=== PATIENT | female | born 1940 | race Caucasian/White ===

== ENCOUNTER → 2020-10-15 | Outpatient (CLI) | payer MEDICARE, BC ==
[~2020-10-15] MED LIST: ALEN70TA77 PO; ASPI81TA45 PO; CIPR250T2 PO; HYDR12.517 PO; LEVO5DRO EACHEYE; METO50TA82 PO; NAPR-856 PO; SIMV20TA19 PO; ZOLP6.255 PO
== END | disposition home or self-care (01) ==
LOC: CFH 09:47
PROVIDERS: ATTEND Internal Medicine
DX: Z13.820 Encounter for screening for osteoporosis (principal); N95.8 Other specified menopausal and perimenopausal disorders; M85.80 Other specified disorders of bone density and structure, unspecified site; M81.0 Age-related osteoporosis without current pathological fracture
CPT/HCPCS: 77080